=== PATIENT | female | born 1980 | race Hispanic/Latino ===

== ENCOUNTER 2021-11-17 09:44 | Inpatient (IN) | payer OTHER ==
[~2021-11-17] VITALS: Ht 175.3 cm; Wt 97.5 kg
[2021-11-17 10:08] LABS: APPEARANCE,URINE Clear (CLEAR); BILIRUBIN,URINE Negative (NEGATIVE); COLOR,URINE Yellow (YELLOW); GLUCOSE, URINE (UA) Negative (NEGATIVE); KETONES,URINE Negative (NEGATIVE); LEUKOCYTE ESTERASE ,URINE Negative (NEGATIVE); NITRATE,URINE Negative (NEGATIVE); OCCULT BLOOD,URINE Negative (NEGATIVE); PROTEIN,URINE Negative (NEGATIVE)
[2021-11-17 10:10] LABS: BASOPHILS % (AUTO) 0.3 % (0.0-5.0); EOSINOPHILS % (AUTO) 0.1 % (0.0-8.0); HEMATOCRIT 47.2 % (36-48); LYMPHOCYTES % (AUTO) 13.2 % (21.0-51.0); MEAN CORPUSCULAR HEMOGLOBIN 29.4 pg (27.0-33.0); MEAN CORPUSCULAR HGB CONC 33.7 g/dL (32.0-36.0); MEAN CORPUSCULAR VOLUME 87.2 fL (79-99); MONOCYTES % (AUTO) 2.7 % (3.0-13.0); NEUTROPHILS % (AUTO) 83.1 % (40.0-77.0); PLATELET COUNT (AUTO) 193 K/uL (130-400); RED BLOOD CELL COUNT(AUTO) 5.41 MIL/uL (4.00-5.50); WHITE BLOOD COUNT (AUTO) 11.1 K/uL (4.8-10.8)
[2021-11-17 10:13] LABS: HCG,QUAL RESULT NEGATIVE (NEGATIVE)
[2021-11-17 10:29] LABS: CREATININE 0.7 mg/dL (0.5-1.5); POTASSIUM 4.1 mmol/L (3.5-5.1)
[2021-11-17 10:33] LABS: ALBUMIN 4.2 g/dL (3.5-5.0); BILIRUBIN,TOTAL 0.5 mg/dL (0.2-1.0); TOTAL PROTEIN, SERUM 8.4 g/dL (6.0-8.3)
[2021-11-17] MEDS ORDERED: KETOROLAC 30MG VIAL (30MG/ML) IV SCH (11:00)
[2021-11-17] MEDS ORDERED: ONDANSETRON 4MG INJ IVP SCH (11:00)
[2021-11-17 15:17] VITALS: BP 127/76
[2021-11-17] MEDS ORDERED: PANTOPRAZOLE 40 MG/VIAL IVP SCH (15:30)
[2021-11-17] MEDS ORDERED: ZOSYN 3.375GM +NS 50ML IV SCH ×2 (15:30)
[2021-11-17] MEDS ORDERED: ONDANSETRON 4MG INJ IVP PRN (15:30)
[2021-11-17] MEDS ORDERED: MORPHINE 2 MG SYG IVP PRN (15:30)
[2021-11-17] MEDS: LACTATED RINGERS 1000ML 1,000 ML IV SCH (15:51)
[2021-11-17] MEDS: KETOROLAC 15MG/ML VIAL (15MG/ML) IV PRN (17:11)
[2021-11-17] MEDS ORDERED: IBUP-2070 PO (18:39)
[2021-11-17 20:00] VITALS: BP 120/57
[2021-11-17] MEDS: ZOSYN 3.375GM +NS 50ML IV SCH (20:55)
[2021-11-17 23:05] VITALS: BP 108/58
[2021-11-18] VITALS (7 sets, daily range): BP systolic 95–114; BP diastolic 55–71
[2021-11-18] MEDS: LACTATED RINGERS 1000ML 1,000 ML IV SCH ×2 (03:10→20:31)
[2021-11-18] MEDS: ZOSYN 3.375GM +NS 50ML IV SCH ×3 (05:15→21:27)
[2021-11-18 06:48] LABS: BASOPHILS % (AUTO) 0.3 % (0.0-5.0); EOSINOPHILS % (AUTO) 0.5 % (0.0-8.0); HEMATOCRIT 41.7 % (36-48); MEAN CORPUSCULAR HEMOGLOBIN 30.1 pg (27.0-33.0); MEAN CORPUSCULAR HGB CONC 33.8 g/dL (32.0-36.0); MEAN CORPUSCULAR VOLUME 88.9 fL (79-99); MONOCYTES % (AUTO) 7.1 % (3.0-13.0); NEUTROPHILS % (AUTO) 75.8 % (40.0-77.0); PLATELET COUNT (AUTO) 156 K/uL (130-400); RED BLOOD CELL COUNT(AUTO) 4.69 MIL/uL (4.00-5.50); RED CELL DISTRIBUTION WIDTH 12.3 % (11.0-15.5); WHITE BLOOD COUNT (AUTO) 9.6 K/uL (4.8-10.8)
[2021-11-18 07:05] LABS: ALBUMIN 3.4 g/dL (3.5-5.0); BILIRUBIN,TOTAL 1.1 mg/dL (0.2-1.0); CREATININE 0.7 mg/dL (0.5-1.5); MAGNESIUM 2.3 mg/dL (1.80-2.40); POTASSIUM 3.3 mmol/L (3.5-5.1); TOTAL PROTEIN, SERUM 6.8 g/dL (6.0-8.3)
[2021-11-18] MEDS: PANTOPRAZOLE 40 MG/VIAL IVP SCH (08:34)
[2021-11-18] MEDS ORDERED: LIDOCAINE HCL-MPF 1% 2ML VIAL IV PRN (11:30)
[2021-11-18] MEDS ORDERED: POTASSIUM CHLORIDE 20MEQ/100ML 100 ML IV PRN (11:30)
[2021-11-18] MEDS ORDERED: KCL 20 MEQ ERTAB PO SCH (20:45)
[2021-11-19] VITALS (27 sets, daily range): BP systolic 93–129; BP diastolic 51–71
[2021-11-19] MEDS: ZOSYN 3.375GM +NS 50ML IV SCH ×4 (05:23→20:41)
[2021-11-19 06:54] LABS: HEMATOCRIT 40.6 % (36-48); MEAN CORPUSCULAR HEMOGLOBIN 30.1 pg (27.0-33.0); MEAN CORPUSCULAR HGB CONC 34.2 g/dL (32.0-36.0); MEAN CORPUSCULAR VOLUME 87.9 fL (79-99); RED BLOOD CELL COUNT(AUTO) 4.62 MIL/uL (4.00-5.50); RED CELL DISTRIBUTION WIDTH 12.2 % (11.0-15.5); WHITE BLOOD COUNT (AUTO) 8.1 K/uL (4.8-10.8)
[2021-11-19 07:08] LABS: CREATININE 0.6 mg/dL (0.5-1.5); POTASSIUM 3.7 mmol/L (3.5-5.1)
[2021-11-19] MEDS: LACTATED RINGERS 1000ML 1,000 ML IV SCH (10:04)
[2021-11-19] MEDS: PANTOPRAZOLE 40 MG/VIAL IVP SCH (10:04)
[2021-11-19 10:43] LABS: CREATININE 0.8 mg/dL (0.5-1.5); POTASSIUM 3.9 mmol/L (3.5-5.1)
[2021-11-19 10:48] LABS: ALBUMIN 3.6 g/dL (3.5-5.0); BILIRUBIN,TOTAL 1.3 mg/dL (0.2-1.0); TOTAL PROTEIN, SERUM 7.5 g/dL (6.0-8.3)
[2021-11-19] MEDS ORDERED: SUCCINYLCHOLINE CHLORIDE 20 MG/ML 10 ML VIAL ONE (11:47)
[2021-11-19] MEDS ORDERED: DEXAMETHASONE SOD PHOSPHATE 10MG/ML 1ML VIAL ONE (11:47)
[2021-11-19] MEDS ORDERED: ONDANSETRON 4MG INJ ONE (11:47)
[2021-11-19] MEDS ORDERED: LIDOCAINE PF 100MG/5ML (2%) SYRINGE 5ML ONE (11:47)
[2021-11-19] MEDS ORDERED: GLYCOPYRROLATE 1 MG/5 ML SYRINGE ONE (11:48)
[2021-11-19] MEDS ORDERED: NEOSTIGMINE 5MG/5ML SYR IV ONE (11:48)
[2021-11-19] MEDS ORDERED: MIDAZOLAM HCL 1 MG/ML 2ML VIAL ONE (11:48)
[2021-11-19] MEDS ORDERED: ROCURONIUM 10MG/1ML SYR 10 MG/ML ML ONE ×2 (11:48→12:55)
[2021-11-19] MEDS ORDERED: PROPOFOL 10 MG/ML 20ML VIAL IV ONE (11:48)
[2021-11-19] MEDS ORDERED: BUPIVACAINE/PF 0.5% 10ML VIAL ONE (12:03)
[2021-11-19] MEDS ORDERED: FENTANYL CITRATE PF 50 MCG/1 ML 2ML VIAL ONE (12:06)
[2021-11-19] MEDS ORDERED: IOHEXOL-350 50ML VIAL IV ONE (12:27)
[2021-11-19] MEDS ORDERED: SUGAMMADEX SODIUM 200 MG/2 ML VIAL IV ONE (13:23)
[2021-11-19] MEDS ORDERED: ONDANSETRON 4MG INJ IVP PRN (13:30)
[2021-11-19] MEDS ORDERED: MEPERIDINE-PF 25 MG/ML SYG IV PRN (13:30)
[2021-11-19] MEDS ORDERED: MEPERIDINE-PF 25 MG/ML SYG ONE (13:40)
[2021-11-19] MEDS: KETOROLAC 15MG/ML VIAL (15MG/ML) IV PRN (14:45)
[2021-11-20] MEDS: LACTATED RINGERS 1000ML 1,000 ML IV SCH ×2 (02:50→03:21)
[2021-11-20 02:52] VITALS: BP 95/59
[2021-11-20] MEDS: ZOSYN 3.375GM +NS 50ML IV SCH ×2 (04:35→13:29)
[2021-11-20 05:50] LABS: BASOPHILS % (AUTO) 0.5 % (0.0-5.0); EOSINOPHILS % (AUTO) 1.3 % (0.0-8.0); HEMATOCRIT 39.2 % (36-48); LYMPHOCYTES % (AUTO) 19.9 % (21.0-51.0); MEAN CORPUSCULAR HEMOGLOBIN 30.1 pg (27.0-33.0); MEAN CORPUSCULAR HGB CONC 34.2 g/dL (32.0-36.0); MEAN CORPUSCULAR VOLUME 88.1 fL (79-99); MONOCYTES % (AUTO) 6.1 % (3.0-13.0); NEUTROPHILS % (AUTO) 71.7 % (40.0-77.0); PLATELET COUNT (AUTO) 164 K/uL (130-400); RED BLOOD CELL COUNT(AUTO) 4.45 MIL/uL (4.00-5.50); WHITE BLOOD COUNT (AUTO) 7.9 K/uL (4.8-10.8)
[2021-11-20 07:47] VITALS: BP 96/55
[2021-11-20] MEDS: PANTOPRAZOLE 40 MG/VIAL IVP SCH (09:56)
[2021-11-20 11:05] VITALS: BP 98/56
[2021-11-20 15:43] LABS: CREATININE 0.8 mg/dL (0.5-1.5)
[2021-11-20 15:47] LABS: ALBUMIN 3.4 g/dL (3.5-5.0); BILIRUBIN,TOTAL 0.6 mg/dL (0.2-1.0); TOTAL PROTEIN, SERUM 7.5 g/dL (6.0-8.3)
[2021-11-20 16:55] VITALS: BP 105/69
== END 2021-11-20 17:30 | disposition home or self-care (01) | DRG 419 ==
LOC: EDH 09:44 → EDHIP 09:45 → WSH 15:10
PROVIDERS: ADMIT Hospitalist; ATTEND Hospitalist
PROC: BF121ZZ Fluoroscopy of Gallbladder using Low Osmolar Contrast (ICD-10-PCS; 2021-11-19)
PROC: 0FT44ZZ Resection of Gallbladder, Percutaneous Endoscopic Approach (ICD-10-PCS; principal; 2021-11-19 11:49)
DX: K80.00 Calculus of gallbladder with acute cholecystitis without obstruction (principal); E86.0 Dehydration; K82.8 Other specified diseases of gallbladder; Z20.822 Contact with and (suspected) exposure to COVID-19; E66.9 Obesity, unspecified; Z68.31 Body mass index [BMI] 31.0-31.9, adult; Z98.891 History of uterine scar from previous surgery; Z80.8 Family history of malignant neoplasm of other organs or systems; Z80.51 Family history of malignant neoplasm of kidney; Z83.3 Family history of diabetes mellitus; Z82.49 Family history of ischemic heart disease and other diseases of the circulatory system
CPT/HCPCS: 36415; 74300; 76705; 78226; 80048; 80053; 81003; 81025; 82150; 83690; 83735; 84145; 85025; 85027; 85651; 86140; 87635; 93005; A9537; C9113; G0378; J0330; J1100; J1885; J2001; J2175; J2250; J2405; J2543; J2704; J2710; J3010; J3490; J7030; J7120; Q9967

== ENCOUNTER 2024-07-18 00:20 | Emergency (ER) | payer BC, MEDICAID ==
[~2024-07-18] VITALS: Ht 172.7 cm; Wt 103.9 kg
[~2024-07-18 00:20] MED LIST: IBUP-2070 PO
[2024-07-18 00:22] VITALS: TEMP 97.6
[2024-07-18 00:55] LABS: BASOPHILS # (AUTO) 0.04 K/uL (0.00-0.20); BASOPHILS % (AUTO) 0.4 % (0.0-5.0); EOSINOPHILS # (AUTO) 0.11 K/uL (0.00-0.70); EOSINOPHILS % (AUTO) 1.2 % (0.0-8.0); HEMATOCRIT 42.1 % (36-48); IMMATURE GRANULOCYTE ABSOLUTE 0.04 K/uL (0-1); LYMPHOCYTES # (AUTO) 2.8 K/uL (1.0-4.8); LYMPHOCYTES % (AUTO) 29.1 % (21.0-51.0); MEAN CORPUSCULAR HEMOGLOBIN 30.6 pg (27.0-33.0); MEAN CORPUSCULAR HGB CONC 34.9 g/dL (32.0-36.0); MEAN CORPUSCULAR VOLUME 87.7 fL (79-99); MONOCYTES # (AUTO) 0.6 K/uL (0.1-1.0); MONOCYTES % (AUTO) 6.1 % (3.0-13.0); NEUTROPHILS # (AUTO) 5.9 K/uL (1.8-7.7); NEUTROPHILS % (AUTO) 62.8 % (40.0-77.0); PLATELET COUNT (AUTO) 199 K/uL (130-400); RED CELL DISTRIBUTION WIDTH 12.3 % (11.0-15.5); WHITE BLOOD COUNT (AUTO) 9.5 K/uL (4.8-10.8)
[2024-07-18 01:10] LABS: CREATININE 0.7 mg/dL (0.5-1.0); POTASSIUM 3.7 mmol/L (3.5-5.1)
[2024-07-18] MEDS: ORPHENADRINE 60MG/2ML IM ONE (01:29)
[2024-07-18] MEDS: TRIAMCINOLONE ACETONIDE 40 MG/ML 1ML VIAL IM ONE (01:29)
--- NOTE | 2024-07-18 01:42 | ERN ---
ED Note History of Present Illness Stated Complaint: C/O PAIN TO NECK, LEFT SHOULDER,BACK Chief Complaint: Neck Pain Time Seen by MD: 00:22 Time Seen by Midlevel: 00:22 Dictation: The patient is a 43-year-old female with a history of , cholecystectomy who presents to the emergency department with complaints of low neck pain, upper back pain radiating to the left arm, left elbow, left shoulder onset Wednesday. Patient reports it happened during the night because she woke up with the pain. Denies any chest pain. Reports pain worse with movement to the left side. Denies any neck trauma. Denies any arm weakness or numbness. Allergies: Coded Allergies: No Known Allergies (Unverified Allergy, Unknown, 11/17/21) Home Meds Reported Medications Ibuprofen (Ibuprofen) 600 Mg Tablet, 600 MG PO Q6H PRN for PAIN, TAB 11/17/21 Past Medical History Past Medical History: No Pertinent History Surgical History: Cholecystectomy, LMP: Jul 05, 2024 RN Note Reviewed/Agreed w/PFSH: Yes Review of System Dictation Constitutional: Negative for fever,chills, and weight loss Eyes: Negative for injury, pain,redness, and discharge ENT: Negative for injury,pain or swelling Cardiovascular: Negative for chest pain, palpitations, and edema Respiratory: Negative for shortness of breath, cough, and wheezing, Abdomen/GI: Negative for abdominal pain, nausea, vomiting, diarrhea, and constipation Back: Negative for injury and pain : Negative for injury, bleeding and discharge MS/Extremity: Negative for injury and deformity positive for neck pain, left arm pain Skin: Negative for rash, and discoloration Neuro: Negative for headache, weakness, numbness, tingling, and seizure Psych: Negative for suicide ideation, homicidal ideation, and hallucinations Initial Vital Sign VS Vital Signs Date Time Temp Pulse Resp B/P (MAP) Pulse Ox O2 Delivery O2 Flow Rate FiO2 07/18/24 00:22 97.5 81 20 150/86 98 Room Air 07/18/24 02:14 0 21 Physical Exam Dictation Vital Signs reviewed General Appearance: Alert, oriented x 3, no acute distress, well developed, nourished. Head and Face: non-traumatic. Eyes: PERRL, pink conjunctivas, eyelid no trauma, anterior chamber with arcus senilis. Ears: Pinnas intact and no signs of trauma or erythema ear canals clear and no discharge TM no erythema Nose: No discharge, no bleeding. Oropharynx: Mouth normal, tongue pink. pharynx clear,no erythema, tonsils no exudates, no abscesses noted, mucous membrane moist Neck: Supple, non-tender, no thyromegaly, no masses, no JVD, no bruits , tendern ess when turning left Breast:Deferred Chest:No tenderness, no crepitus, no paradoxical movement, no retractions Lungs:Clear, well-ventilated, symmetric, no rales, no wheezing, no rhonchi, no stridor, good breath sounds bilaterally Heart: Regular rate, regular rhythm, no murmur, no gallops Vascular: no peripheral edema, Abdomen: Soft, positive bowel sounds, nondistended, no guarding, nontender, no rebound, no masses no hepatomegaly, no splenomegaly, no Arthur's sign, no hernias. Rectal: Deferred Genital: Deferred Neurological: Normal speech, motor function intact, sensory function intact Musculoskeletal: Neck nontender, full range of motion, back nontender, full range of motion, Extremities: nontender, full range of motion Skin: Color pink, dry, no turgor, no rash, no lacerations, no abrasions, no contusions. Lymphatic: Deferred Results (Laboratory/Radiology) Laboratory/Radiology Laboratory Tests Test 07/18/24 00:49 White Blood Count 9.5 K/uL (4.8-10.8) Red Blood Count 4.80 MIL/uL (4.00-5.50) Hemoglobin 14.7 g/dL (12.0-16.0) Hematocrit 42.1 % (36-48) Mean Corpuscular Volume 87.7 fL (79-99) Mean Corpuscular Hemoglobin 30.6 pg (27.0-33.0) Mean Corpuscular Hemoglobin Concent 34.9 g/dL (32.0-36.0) Red Cell Distribution Width 12.3 % (11.0-15.5) Platelet Count 199 K/uL (130-400) Mean Platelet Volume 9.9 fL (7.5-10.5) Immature Granulocyte % (Auto) 0.4 % (0-1) Neutrophils (%) (Auto) 62.8 % (40.0-77.0) Lymphocytes (%) (Auto) 29.1 % (21.0-51.0) Monocytes (%) (Auto) 6.1 % (3.0-13.0) Eosinophils (%) (Auto) 1.2 % (0.0-8.0) Basophils (%) (Auto) 0.4 % (0.0-5.0) Neutrophils # (Auto) 5.9 K/uL (1.8-7.7) Lymphocytes # (Auto) 2.8 K/uL (1.0-4.8) Monocytes # (Auto) 0.6 K/uL (0.1-1.0) Eosinophils # (Auto) 0.11 K/uL (0.00-0.70) Basophils # (Auto) 0.04 K/uL (0.00-0.20) Absolute Immature Granulocyte (auto 0.04 K/uL (0-1) Nucleated Red Blood Cells 0.0 % (0.0-0.19) Sodium Level 137 mmol/L (136-145) Potassium Level 3.7 mmol/L (3.5-5.1) Chloride Level 101 mmol/L (101-111) Carbon Dioxide Level 29 mmol/L (21-32) Blood Urea Nitrogen 11 mg/dL (7-18) Creatinine 0.7 mg/dL (0.5-1.0) Glomerular Filtration Rate Calc 109 mL/min (>90) Random Glucose 103 mg/dL (70-105) Total Calcium 8.5 mg/dL (8.5-10.1) Troponin I High Sensitivity < 4 ng/L (4-50) L Serum Test, Qualitative NEGATIVE (NEGATIVE) Labs Reviewed?: Yes EKG: (+) NSR, (+) rhythm (sinus rhythm) EKG Comment: EKG 07/18/2024 0159 Ventricular rate 66, sinus rhythm, regular rate and rhythm, no stemi ED Course ED Course Orders Procedure Category Date Status Time Cbc With Differential LAB 07/18/24 Complete 00:39 Chest 1vw RAD 07/18/24 Taken 00:39 12 Lead Ekg Tracing- EKG 07/18/24 Logged Technical 00:39 Troponin I High LAB 07/18/24 Complete Sensitivity 00:39 Basic Metabolic Panel LAB 07/18/24 Complete 00:39 Testing, LAB 07/18/24 Complete Serum Hcg 00:39 Orphenadrine Citrate PHA 07/18/24 In Process (Norflex) 01:00 Triamcinolone Acet PHA 07/18/24 In Process 40mg/Ml 1ml (Kenalog 01:00 Cerv Spine 2-3vws RAD 07/18/24 Taken 00:39 Current Medications Medications (Trade) Dose Ordered Sig/Bimal Route PRN Reason Start Time Stop Time Status Last Admin Dose Admin Orphenadrine Citrate (Norflex) 60 mg ONCE ONCE IM 07/18/24 01:00 07/18/24 01:01 07/18/24 01:29 Triamcinolone Acetonide (Kenalog 40) 40 mg ONCE ONCE IM 07/18/24 01:00 07/18/24 01:01 07/18/24 01:29 Vital Signs Date Time Temp Pulse Resp B/P (MAP) Pulse Ox O2 Delivery O2 Flow Rate FiO2 07/18/24 02:14 62 18 117/77 98 Room Air* 0 21 07/18/24 00:22 97.5 81 20 150/86 98 Room Air Medical Decision Making MDM The patient is a 43-year-old female with a history of , cholecystectomy who presents to the emergency department with complaints of low neck pain, upper back pain radiating to the left arm, left elbow, left shoulder onset Wednesday. Patient reports it happened during the night because she woke up with the pain. Denies any chest pain. Reports pain worse with movement to the left side. Denies any neck trauma. Denies any arm weakness or numbness. Differential diagnosis: ACS, C-spine fracture, electrolyte imbalance, cervical radiculopathy Need for hospitalization: Patient does not meet criteria for hospitalization. There are no social concerns with this patient. Patient's C-spine x-ray shows no fracture or subluxation prevertebral soft tissue edema or significant degenerative changes. DX & DISP Disposition: Discharge Departure Impression: Primary Impression: Neck pain Condition: Stable Additional Instructions: Please follow up with your primary care physician in the next 1-7 days for continuance of care. Please take alternating Tylenol and ibuprofen to help with pain. Referrals: GRANT GOMEZ MD (PCP) CARL CAUSEY Jul 18, 2024 01:42 BAHMAN NIEVES MD Jul 18, 2024 03:14
[2024-07-18 02:14] VITALS: BP 117/77; PULSE 62; RESP 18; O2SAT 98
[2024-07-18] MEDS ORDERED: CYCL-309 PO (03:26)
--- NOTE | 2024-07-18 07:01 | EKG ---
[facility] Test Date: 2024-07-18 Test Time: 01:59:24 Pat Name: MARILY BOOKER Department: [facility] Room: Gender: F Tax Agent: [id number] : 1980 Requested By: CARL CAUSEY Order Number: [id number] Reading MD: Vick Ruelas Measurements Intervals [place] Rate: 66 P: 45 VA: 147 QRS: 16 QRSD: 89 T: 20 QT: 417 QTc: 439 Interpretive Statements Sinus rhythm Nonspecific T abnormalities, lateral leads Compared to ECG 11/17/2021 15:44:19 T-wave abnormality now present Electronically Signed On 07-18-2024 15:13:38 [employer] MACHINE OPERATOR by Vick Ruelas Please click the below link to view image of tracing.
--- NOTE | 2024-07-18 08:45 | HMCIMG ---
CHEST 1VW REASON: back pain COMPARISON: None. FINDINGS: Single view of the chest was obtained. Lungs are clear. Heart size is normal. There is no pulmonary vascular congestion. Mediastinum and bony thorax appear unremarkable. IMPRESSION: 1. Normal single view chest x-ray.
--- NOTE | 2024-07-18 08:46 | HMCIMG ---
Exam: CERVICAL SPINE 2 VIEWS REASON: back pain TECHNIQUE: 4 views were obtained. FINDINGS: There are normal appearing vertebral bodies. Interspace heights are well preserved. There are no visible fractures. Soft tissues appear unremarkable. IMPRESSION: 1. Normal views of the cervical spine.
== END 2024-07-18 03:18 | disposition home or self-care (01) ==
LOC: EDH 00:20
DX: M54.2 Cervicalgia (principal); Z79.899 Other long term (current) drug therapy; Z90.49 Acquired absence of other specified parts of digestive tract
CPT/HCPCS: 99284; 71045; 84484; 80048; 84703; 85025; 36415; 72040; 96372 ×2; 93005; J3301; J2360